=== PATIENT | female | born 1965 | race Asian ===

== ENCOUNTER → 2016-10-15 | Outpatient (CLI) | payer OTHER ==
[~2016-10-15] MED LIST: MULT-614 PO
== END | disposition home or self-care (01) ==
LOC: C.PAPS 13:48
PROVIDERS: ATTEND Obstetrics & Gynecology
DX: Z01.419 Encounter for gynecological examination (general) (routine) without abnormal findings (principal)

== ENCOUNTER → 2016-12-30 | Outpatient (CLI) | payer OTHER ==
[2016-12-30 12:25] LABS: BASO % 0.3 %; BASO ABS # 0.02 K/uL (0-0.2); COMPLETE YES; EOS % 4.2 %; HEMATOCRIT 38.9 % (37-47); IG% 0.2 %; LYMPH % 43.2 %; LYMPH ABS # 2.49 K/uL (1.2-3.4); MEAN CELL VOLUME 96.3 fL (80-100); MEAN CORPUSCULAR HEMOGLOBIN 31.9 pg (25-34); MEAN CORPUSCULAR HGB CONC 33.2 g/dl (32-36); MEAN PLATELET VOLUME 9.5 fL (7.4-10.4); MONO % 9.4 %; NEUT % 42.7 %; PLATELET COUNT 363 K/uL (130-400); RED BLOOD COUNT 4.04 M/uL (4.2-5.4); WHITE BLOOD COUNT 5.77 K/uL (4.8-10.8)
[2016-12-30 12:43] LABS: CALCIUM 9.3 mg/dl (8.5-10.1)
[2016-12-30 12:45] LABS: ALT/SGPT 25 U/L (12-78); BLOOD UREA NITROGEN 8 mg/dl (7-18); BUN/CREATININE RATIO 12.1 (10-20); CARBON DIOXIDE 28 mmol/L (21-32); CHLORIDE 105 mmol/L (98-107); CHOLESTEROL 197 mg/dl (0-200); CREATININE 0.66 mg/dl (0.60-1.20); GLUCOSE 89 mg/dl (70-99); SODIUM 141 mmol/L (136-145); TRIGLYCERIDES 168 mg/dl (0-150); VERY LOW DENSITY LIPOPROT CALC 34 mg/dl
[2016-12-30 12:56] LABS: ALKALINE PHOSPHATASE 56 U/L (45-117); AST/SGOT 20 U/L (15-37); CHOLESTEROL/HDL RATIO 3.4; HDL CHOLESTEROL 58 mg/dl; LDL CHOLESTEROL CALCULATED 105 mg/dl
== END | disposition home or self-care (01) ==
LOC: C.LAB1850 10:42
PROVIDERS: ATTEND Internal Medicine
DX: Z00.00 Encounter for general adult medical examination without abnormal findings (principal); Z11.59 Encounter for screening for other viral diseases; R61 Generalized hyperhidrosis; Z13.220 Encounter for screening for lipoid disorders; L98.9 Disorder of the skin and subcutaneous tissue, unspecified

== ENCOUNTER → 2017-02-20 | Outpatient (CLI) | payer OTHER ==
--- NOTE | 2017-02-21 13:59 | MAMMOGRAPHY REPORT ---
BILATERAL DIGITAL SCREENING MAMMOGRAM TOMOSYNTHESIS WITH CAD: 02/20/2017 CLINICAL HISTORY: Routine screening. Patient has no complaints. TECHNIQUE: Breast tomosynthesis in addition to standard 2D mammography was performed. Current study was also evaluated with a Computer Aided Detection (CAD) system. COMPARISON: Comparison is made to exams dated: 02/20/2016 mammogram, 11/23/2013 mammogram, and 3 mammogram - [facility]. BREAST COMPOSITION: The tissue of both breasts is extremely dense, which lowers the sensitivity of m ammography. FINDINGS: No suspicious masses, calcifications, or areas of architectural distortion are noted in ei ther breast. There has been no significant interval change compared to prior exams. IMPRESSION: ACR BI-RADS CATEGORY 1: NEGATIVE There is no mammographic evidence of malignancy. A 1 year screening mammogram is recommended. The pa tient will receive written notification of the results. Approximately 10% of breast cancers are not detected with mammography. A negative mammographic report should not delay biopsy if a clinically suggestive mass is present. Rosie Hill M.D. ah/:02/20/2017 15:42:21 Stranding Supervisor: Yolette CIFUENTES(R)(M), [facility] letter sent: Normal 1/2 BI-RADS Code: ACR BI-RADS Category 1: Negative
== END | disposition home or self-care (01) ==
LOC: C.MAMM 09:09
PROVIDERS: ATTEND Family Medicine
DX: Z12.31 Encounter for screening mammogram for malignant neoplasm of breast (principal)

== ENCOUNTER 2017-10-22 11:40 | Emergency (ER) | payer OTHER ==
[~2017-10-22] VITALS: Ht 160 cm; Wt 55.0 kg
[2017-10-22 11:46] VITALS: TEMP 36.6; Ht 160 cm; Wt 55.0 kg
[2017-10-22] MEDS ORDERED: ALBUT/IPRATROP 3MG/0.5MG NEB 3 ML VIAL INH STA (12:16)
[2017-10-22] MEDS ORDERED: METHYLPREDNISOLONE 125 MG VIAL IV STA (12:16)
--- NOTE | 2017-10-22 12:40 | DIAGNOSTIC IMAGING REPORT ---
TWO VIEW CHEST CLINICAL HISTORY: Dyspnea. FINDINGS: PA and lateral chest radiographs are obtained. No prior studies are available for comparison at the time of dictation. The cardiomediastinal silhouette is unremarkable. The lungs and pleural spaces are clear. There is no pneumothorax. The bony thorax appears intact. IMPRESSION: No active disease in the chest. Electronically signed by: Regan Sullivan M.D. 10/22/2017 12:39 PM Dictated Date/Time: 10/22/2017 12:38 PM
[2017-10-22 13:04] LABS: BASO % 0.7 %; BASO ABS # 0.04 K/uL (0-0.2); EOS % 3.1 %; EOS ABS # 0.18 K/uL (0-0.5); HEMOGLOBIN 12.6 g/dL (12.0-16.0); IG# 0.01 K/uL (0.00-0.02); LYMPH % 39.9 %; LYMPH ABS # 2.32 K/uL (1.2-3.4); MEAN CELL VOLUME 95.1 fL (80-100); MEAN CORPUSCULAR HEMOGLOBIN 32.4 pg (25-34); MEAN CORPUSCULAR HGB CONC 34.1 g/dl (32-36); MEAN PLATELET VOLUME 8.7 fL (7.4-10.4); MONO % 8.1 %; MONO ABS # 0.47 K/uL (0.11-0.59); NEUT ABS # 2.79 K/uL (1.4-6.5); PLATELET COUNT 325 K/uL (130-400); RED CELL DISTRIBUTION WIDTH CV 13.5 % (11.5-14.5); WHITE BLOOD COUNT 5.81 K/uL (4.8-10.8)
[2017-10-22 13:18] LABS: ALBUMIN 3.8 gm/dl (3.4-5.0); CREATININE 0.6 mg/dl (0.60-1.20); POTASSIUM 3.5 mmol/L (3.5-5.1)
[2017-10-22 13:21] LABS: TOTAL PROTEIN 7.8 gm/dl (6.4-8.2)
[2017-10-22] MEDS ORDERED: PRED20TA PO (14:27)
[2017-10-22 14:37] VITALS: BP 117/59; PULSE 62; O2SAT 98
--- NOTE | 2017-10-23 06:41 | EMERGENCY ROOM VISIT NOTE ---
ED Visit Note First contact with patient: 12:04 Chief Complaint: Facial swelling and difficulty breathing. History of Present Illness: Ms. Hess is a 52-year-old female who ambulates into the ED accompanied by her complaining of facial redness, facial swelling and difficulty breathing. Patient reports her symptoms started last evening approximately 14-15 hours ago. She reports she initially noted some redness of her face and then swelling of her face. She reports initially this was mild but has gradually increased. And then through the night she reports she was experiencing difficulty breathing. When I asked her to differentiate between shortness of breath and difficulty breathing she reported that it was difficulty breathing in that throughout the night she felt like her breathing was "heavy". She has not identified any aggravating or alleviating factors related to these symptoms. She has not taken any medications for these symptoms prior to arrival at the hospital. She denies previous similar symptoms. I did try to seek a cause and the only thing the patient remembers is that she used a face cream she had not used before a couple days ago. Associated with her symptoms she does report that her face is itchy and that she had a mild intermittent nonproductive cough. She denies fevers, chills, sweats, other skin eruptions, other skin color changes, other upper respiratory tract symptoms; nasal congestion, sinus congestion, lip swelling, tongue swelling, difficulty swallowing, voice changes , drooling, painful talking, facial pain, chest pain, nausea/vomiting, decreased appetite. Review of Systems: As noted above in history of present illness. All body systems were reviewed and found to be negative as noted above. Past Medical History: Patient denies. Current Medications: Multivitamin. Allergies to Medications: Patient denies. Social History: Patient is currently employed; she lives with her and feels safe in her home environment; she denies tobacco and alcohol use. Physical Examination: Vital Signs: Date Time Temp Pulse Resp B/P (MAP) Pulse Ox O2 Delivery O2 Flow Rate FiO2 10/22/17 14:37 62 14 117/59 98 10/22/17 13:33 67 15 97 Room Air 10/22/17 12:46 67 10/22/17 11:46 36.6 68 16 147/88 96 GENERAL: 52-year-old female in mild distress due to symptoms, nontoxic-appearing , afebrile and hemodynamically stable. NEUROLOGICAL: Awake, alert and oriented to person, place and time. Answering questions appropriately and following commands. Normal gait. Good hand eye coordination. No focal motor or sensory deficits. SKIN: Warm, dry and pink. Face: Patient had moderate erythema throughout the face associated with mild edema with prominence of the edema around the inferior eyes and nose bilaterally. This area was warm to the touch but not hot. It did not appear cellulitic. There is no local lymphangitis. The skin was not tender to palpation. HEENT: Atraumatic and normocephalic. PERRLA. Sclera white and conjunctiva pink. No drainage from naris. Oral cavity moist and pink. Airway was patent. No lip or tongue swelling. Pharynx is nonerythematous or edematous. Speech normal and clear. No lymphadenopathy. Trachea midline. No jugular venous distention. No auditory or ausculatory stridor. THORAX: Lungs sounds are clear to auscultation but air movement was decreased bilaterally. Equal bilaterally with symmetrical chest wall. No wheezing, rales or rhonchi. No crepitus, tenderness, subcutaneous air or deformities noted. No increased respiratory effort or rate. HEART: Regular rate and rhythm. No gallops, rubs or murmurs are appreciated. ABDOMEN: Flat, soft and nontender. Positive bowel sounds in all quadrants. No guarding, rigidity or organomegaly. EXTREMITIES: Moves all extremities well on command and with purpose. All distal neurovascular statuses are intact and equal bilaterally. ED Course: Patient is assessed as noted above. Patient's medication list was reviewed. Laboratory Testing: Test 10/22/17 12:50 Range/Units White Blood Count 5.81 4.8-10.8 K/uL Red Blood Count 3.89 4.2-5.4 M/uL Hemoglobin 12.6 12.0-16.0 g/dL Hematocrit 37.0 37-47 % Mean Corpuscular Volume 95.1 80-100 fL Mean Corpuscular Hemoglobin 32.4 25-34 pg Mean Corpuscular Hemoglobin Concent 34.1 32-36 g/dl Platelet Count 325 130-400 K/uL Mean Platelet Volume 8.7 7.4-10.4 fL Neutrophils (%) (Auto) 48.0 % Lymphocytes (%) (Auto) 39.9 % Monocytes (%) (Auto) 8.1 % Eosinophils (%) (Auto) 3.1 % Basophils (%) (Auto) 0.7 % Neutrophils # (Auto) 2.79 1.4-6.5 K/uL Lymphocytes # (Auto) 2.32 1.2-3.4 K/uL Monocytes # (Auto) 0.47 0.11-0.59 K/uL Eosinophils # (Auto) 0.18 0-0.5 K/uL Basophils # (Auto) 0.04 0-0.2 K/uL RDW Standard Deviation 47.0 36.4-46.3 fL RDW Coefficient of Variation 13.5 11.5-14.5 % Immature Granulocyte % (Auto) 0.2 % Immature Granulocyte # (Auto) 0.01 0.00-0.02 K/uL Sodium Level 140 136-145 mmol/L Potassium Level 3.5 3.5-5.1 mmol/L Chloride Level 106 98-107 mmol/L Carbon Dioxide Level 29 21-32 mmol/L Anion Gap 6.0 3-11 mmol/L Blood Urea Nitrogen 9 7-18 mg/dl Creatinine 0.60 0.60-1.20 mg/dl Est Creatinine Clear Calc Drug Dose 88.6 ml/min Estimated GFR () 119.8 Estimated GFR (Non- 103.3 BUN/Creatinine Ratio 14.9 10-20 Random Glucose 89 70-99 mg/dl Calcium Level 9.0 8.5-10.1 mg/dl Total Bilirubin 0.9 0.2-1 mg/dl Aspartate Amino Transf (AST/SGOT) 19 15-37 U/L Alanine Aminotransferase (ALT/SGPT) 22 12-78 U/L Alkaline Phosphatase 62 45-117 U/L Total Protein 7.8 6.4-8.2 gm/dl Albumin 3.8 3.4-5.0 gm/dl Globulin 4.0 2.5-4.0 gm/dl Albumin/Globulin Ratio 1.0 0.9-2 Chest X-Ray: Was read by myself and the radiologist showing no acute infiltrates , effusions or pneumothorax. Normal heart silhouette and bony anatomy. An IV lock was initiated and patient received 125 mg of Solu-Medrol IV and she received an albuterol/Atrovent nebulizer breathing treatment. Patient was reassessed multiple times during her stay in the emergency department. After her albuterol/Atrovent nebulizer breathing treatment her lungs were reevaluated and remained clear to auscultation but there was also increased air movement through all park. Additionally I did note on reassessments there was a significant decrease in her facial erythema and minimally decrease in the facial edema. Patient's case was reviewed with Dr. Bean; we agreed on diagnostic approach, treatment, disposition and plan. Clinical Impression: Facial swelling and erythema. Questionable allergic reaction. Decision-Making: Initially my differential diagnosis I considered allergic reaction, dental abscess, sinus infection, angioedema, cellulitis and other causes. Disposition: Patient discharged home in stable condition accompanied by her ; prior to departure she was reassessed and subjectively reported she was feeling much better but still expressed concerns of her facial swelling. Plan: Patient was encouraged to use 25 mg of Benadryl every 6 hours as needed for facial itching. Patient was prescribed a prednisone taper and instructed on its use. Patient was encouraged to avoid the facial cream she was using. Patient was encouraged to use ice on the face for swelling. Patient was encouraged to follow-up with family physician for recheck in 2-3 days if not completely better. Patient was encouraged return the ED for worsening facial redness, worsening facial swelling, shortness of breath, sensations of lip/tongue swelling or any new/concerning symptoms.
== END 2017-10-22 14:45 | disposition home or self-care (01) ==
LOC: C.EDB 11:41 → C.EDC 14:45
DX: R22.0 Localized swelling, mass and lump, head (principal); L53.9 Erythematous condition, unspecified

== ENCOUNTER → 2018-02-24 | Outpatient (CLI) | payer OTHER ==
--- NOTE | 2018-02-24 14:59 | MAMMOGRAPHY REPORT ---
BILATERAL DIGITAL SCREENING MAMMOGRAM TOMOSYNTHESIS WITH CAD: 02/24/2018 CLINICAL HISTORY: Routine screening. TECHNIQUE: The study was acquired using full field digital technology and interpreted from soft copy. Breast tomosynthesis in addition to standard 2D mammography was performed. Current study was also ev aluated with a Computer Aided Detection (CAD) system. COMPARISON: Comparison is made to exams dated: 02/20/2017 mammogram, 02/20/2016 mammogram, 11/23/2013 [facility] mmogram, and 11/03/2012 mammogram - [facility]. BREAST COMPOSITION: The tissue of both breasts is extremely dense, which lowers the sensitivity of ma mmography. FINDINGS: The parenchymal pattern is unchanged. No developing mass, architectural distortion or cluster of susp icious microcalcifications is seen in either breast. IMPRESSION: ACR BI-RADS CATEGORY 2: BENIGN There is no mammographic evidence of malignancy. A 1 year screening mammogram is recommended.( 019) The patient will receive written notification of the results. Some breast cancers are not detected with mammography. A negative mammographic report should not tay y biopsy if a clinically suggestive mass is present. Joanne Olmos M.D. ay/:02/24/2018 10:00:56 Bods Developer: RT Trey(R)(M), [facility] letter sent: Normal 1/2 BI-RADS Code: ACR BI-RADS Category 2: Benign
== END | disposition home or self-care (01) ==
LOC: C.MAMM 08:41
PROVIDERS: ATTEND Family Medicine
DX: Z12.31 Encounter for screening mammogram for malignant neoplasm of breast (principal)